=== PATIENT | male | born 1970 | race Caucasian/White ===

== ENCOUNTER 2022-12-08 10:36 | Inpatient (IN) | payer OTHER ==
[2022-12-08 11:07] VITALS: BMI 23.3
[2022-12-08] MEDS ORDERED: MAG HYDROX/AL HYDROX/SIMETH 30 ML UNIT-DOSE CUP PO PRN (12:43)
[2022-12-08] MEDS ORDERED: POLYETHYLENE GLYCOL (HEALTHYLAX) 3350 17 GM PACKET PO PRN (12:43)
[2022-12-08] MEDS ORDERED: BISMUTH SUBSALICYLATE 524 MG/30 ML PO PRN (12:43)
[2022-12-08] MEDS ORDERED: NALOXONE HCL 0.4 MG/ML VIAL IM PRN (12:43)
[2022-12-08] MEDS ORDERED: LOPERAMIDE HCL 2 MG CAPSULE PO PRN (12:43)
[2022-12-08] MEDS ORDERED: DICYCLOMINE HCL 10 MG CAPSULE PO PRN (12:43)
[2022-12-08] MEDS ORDERED: MAGNESIUM HYDROX 2400MG/30ML ORAL SUSPENSION 30 ML CUP PO PRN (12:43)
[2022-12-08] MEDS ORDERED: IBUPROFEN 600 MG TABLET (FP) PO PRN (12:43)
[2022-12-08] MEDS ORDERED: NALOXONE HCL (KLOXXADO) 8 MG SPRAY NS PRN (12:43)
[2022-12-08] MEDS ORDERED: ACETAMINOPHEN 325 MG TABLET (FP) PO PRN ×2 (12:43)
[2022-12-08] MEDS ORDERED: ONDANSETRON *ODT* 4 MG TABLET SL PRN (12:43)
[2022-12-08] MEDS ORDERED: IBUPROFEN 400 MG TABLET (FP) PO PRN (12:43)
[2022-12-08] MEDS ORDERED: BENZOCAINE/MENTHOL (CHLORASEPTIC ) LOZENGE MM PRN (12:43)
[2022-12-08] MEDS ORDERED: methaDONE HCL 10 MG TABLET (FOR DETOX USE ONLY) PO ONE (12:46)
[2022-12-08] MEDS: METHOCARBAMOL 500 MG TABLET PO PRN ×2 (13:24→22:48)
[2022-12-08] MEDS: diazePAM 5 MG TABLET PO PRN ×2 (13:27→19:49)
[2022-12-08] MEDS: diazePAM 5 MG TABLET PO SCH ×2 (16:47→22:47)
[2022-12-08] MEDS: MELATONIN 5 MG TABLETS PO SCH (22:46)
[2022-12-08] MEDS: THIAMINE HCL 100 MG TABLET (FP) PO SCH (22:46)
[2022-12-08] MEDS: NICOTINE POLACRILEX 2 MG GUM BUC PRN (22:56)
[2022-12-09] MEDS: diazePAM 5 MG TABLET PO PRN ×4 (02:50→19:26)
[2022-12-09] MEDS: diazePAM 5 MG TABLET PO SCH ×4 (05:51→22:30)
[2022-12-09] MEDS: METHOCARBAMOL 500 MG TABLET PO PRN ×2 (08:43→17:40)
[2022-12-09] MEDS: PRENATAL VITAMINS W/ FOLIC ACID TABLET (FP) PO SCH (10:35)
[2022-12-09 14:51] LABS: PH,URINE 5.5 (5.0-8.0); URINE APPEARANCE CLEAR; URINE BILIRUBIN NEGATIVE (NEGATIVE); URINE COLOR YELLOW; URINE GLUCOSE (UA) NEGATIVE (NEGATIVE); URINE KETONE NEGATIVE (NEGATIVE); URINE LEUK ESTERASE NEGATIVE (NEGATIVE); URINE NITRITE NEGATIVE (NEGATIVE); URINE PROTEIN NEGATIVE (NEGATIVE); URINE UROBILINOGEN 0.2 mg/dL (0.2-1.0)
[2022-12-09] MEDS: DOLUTEGRAVIR SODIUM 50 MG TABLET (NON-FORMULARY) PO SCH (14:52)
[2022-12-09] MEDS: RILPIVIRINE HCL 25 MG TABLET PO SCH (14:53)
[2022-12-09] MEDS: NICOTINE POLACRILEX 2 MG GUM BUC PRN (19:36)
[2022-12-09] MEDS: MELATONIN 5 MG TABLETS PO SCH (22:31)
[2022-12-09] MEDS: THIAMINE HCL 100 MG TABLET (FP) PO SCH (22:31)
[2022-12-09] MEDS: hydrOXYzine PAMOATE 25 MG CAPSULE (FP) PO PRN (22:32)
[2022-12-10] MEDS: diazePAM 5 MG TABLET PO SCH ×3 (05:40→22:07)
[2022-12-10] MEDS: diazePAM 5 MG TABLET PO PRN ×2 (08:35→17:02)
[2022-12-10] MEDS ORDERED: methaDONE HCL 10 MG TABLET (FOR DETOX USE ONLY) PO ONE (10:00)
[2022-12-10] MEDS: DOLUTEGRAVIR SODIUM 50 MG TABLET (NON-FORMULARY) PO SCH (10:06)
[2022-12-10] MEDS: PRENATAL VITAMINS W/ FOLIC ACID TABLET (FP) PO SCH (10:06)
[2022-12-10] MEDS: RILPIVIRINE HCL 25 MG TABLET PO SCH (10:06)
[2022-12-10] MEDS ORDERED: NICOTINE 10 MG CARTRIDGE (INHALER) IH PRN (13:48)
[2022-12-10] MEDS: THIAMINE HCL 100 MG TABLET (FP) PO SCH (22:07)
[2022-12-10] MEDS: MELATONIN 5 MG TABLETS PO SCH (22:07)
[2022-12-10] MEDS: METHOCARBAMOL 500 MG TABLET PO PRN (22:10)
[2022-12-10] MEDS: hydrOXYzine PAMOATE 25 MG CAPSULE (FP) PO PRN (22:10)
[2022-12-11] MEDS: diazePAM 5 MG TABLET PO PRN (03:03)
[2022-12-11] MEDS ORDERED: diazePAM 5 MG TABLET PO SCH (06:00)
[2022-12-11 06:27] VITALS: TEMP 97.5
[2022-12-11 09:11] VITALS: BP 136/95; PULSE 95; RESP 16
[2022-12-12] MEDS ORDERED: diazePAM 5 MG TABLET PO ONE (06:00)
[2022-12-12] MEDS ORDERED: methaDONE HCL 10 MG TABLET (FOR DETOX USE ONLY) PO ONE (10:00)
== END 2022-12-11 09:49 | disposition left against medical advice (07) | DRG 770 ==
LOC: YASAS 10:36 → Y3N 12:56
PROVIDERS: ADMIT Allergy & Immunology; ATTEND Surgery
PROC: HZ2ZZZZ Detoxification Services for Substance Abuse Treatment (ICD-10-PCS; principal; 2022-12-08)
DX: F11.23 Opioid dependence with withdrawal (principal); F13.20 Sedative, hypnotic or anxiolytic dependence, uncomplicated; F14.20 Cocaine dependence, uncomplicated; F10.10 Alcohol abuse, uncomplicated; F17.210 Nicotine dependence, cigarettes, uncomplicated; Z21 Asymptomatic human immunodeficiency virus [HIV] infection status; B18.2 Chronic viral hepatitis C; Z28.310 Unvaccinated for COVID-19; Z28.9 Immunization not carried out for unspecified reason
CPT/HCPCS: 81003; 87811; 93005; 93010; C9803-CS; U0003; U0005

== ENCOUNTER 2024-04-20 17:29 | Inpatient (IN) | payer OTHER ==
[2024-04-20 19:35] VITALS: BMI 23.3
[2024-04-20] MEDS ORDERED: LOPERAMIDE HCL 2 MG CAPSULE PO PRN (22:54)
[2024-04-20] MEDS ORDERED: BENZOCAINE/MENTHOL (CHLORASEPTIC ) LOZENGE MM PRN (22:54)
[2024-04-20] MEDS ORDERED: IBUPROFEN 600 MG TABLET (FP) PO PRN (22:54)
[2024-04-20] MEDS ORDERED: hydrOXYzine PAMOATE 25 MG CAPSULE (FP) PO PRN (22:54)
[2024-04-20] MEDS ORDERED: IBUPROFEN 400 MG TABLET (FP) PO PRN (22:54)
[2024-04-20] MEDS ORDERED: NALOXONE (NARCAN) HCL 4 MG/0.1 ML SPRAY NS PRN (22:54)
[2024-04-20] MEDS ORDERED: NALOXONE HCL 0.4 MG/ML VIAL IM PRN (22:54)
[2024-04-20] MEDS ORDERED: NICOTINE POLACRILEX 2 MG GUM BUC PRN (22:54)
[2024-04-20] MEDS ORDERED: BISMUTH SUBSALICYLATE 524 MG/30 ML PO PRN (22:54)
[2024-04-20] MEDS ORDERED: ACETAMINOPHEN 325 MG TABLET (FP) PO PRN (22:54)
[2024-04-20] MEDS ORDERED: BENZONATATE 200 MG CAPSULE PO PRN (22:54)
[2024-04-20] MEDS ORDERED: ONDANSETRON *ODT* 4 MG TABLET SL PRN (22:54)
[2024-04-20] MEDS ORDERED: MAG HYDROX/AL HYDROX/SIMETH 30 ML UNIT-DOSE CUP PO PRN (22:54)
[2024-04-20] MEDS ORDERED: POLYETHYLENE GLYCOL (HEALTHYLAX) 3350 17 GM PACKET PO PRN (22:54)
[2024-04-20] MEDS ORDERED: MAGNESIUM HYDROX 2400MG/30ML ORAL SUSPENSION 30 ML CUP PO PRN (22:54)
[2024-04-20] MEDS ORDERED: guaiFENesin 600 MG TABLET.ER (FP) PO PRN (22:54)
[2024-04-20] MEDS ORDERED: cloNIDine HCL 0.1 MG TABLET PO PRN (22:57)
[2024-04-20] MEDS: diazePAM 5 MG TABLET PO SCH (23:28)
[2024-04-20] MEDS: methaDONE HCL 10 MG TABLET (FOR DETOX USE ONLY) PO ONE (23:55)
[2024-04-21 08:51] LABS: HEMOGLOBIN 12.2 GM/dL (11.7-16.9); MCH 30.9 pg (25.7-33.7); MCHC 34.8 g/dl (32.0-35.9); MEAN CELL VOLUME 88.7 fl (80-96); MEAN PLT VOLUME 8.3 fl (7.5-11.1); PLATELET COUNT 232 10^3/uL (134-434); RBC 3.94 M/mm3 (4.00-5.60); RDW 12.8 % (11.9-15.9); WHITE BLOOD COUNT 6.6 K/mm3 (4.0-10.0)
[2024-04-21 09:04] LABS: CHLORIDE 106 mmol/L (98-107); POTASSIUM 4.1 mmol/L (3.5-5.1); SODIUM 140 mmol/L (136-145)
[2024-04-21 09:06] LABS: CALCIUM 8.5 mg/dL (8.5-10.1)
[2024-04-21 09:07] LABS: BLOOD UREA NITROGEN 17.1 mg/dL (7-18)
[2024-04-21 09:08] LABS: ANION GAP 4 mmol/L (4-13); CO2 30 mmol/L (21-32)
[2024-04-21 09:10] LABS: CREATININE 1.1 mg/dL (0.55-1.3); GLUCOSE,RANDOM 84 mg/dL (74-106); SGOT/AST 15 U/L (15-37); SGPT/ALT 9 U/L (13-61)
[2024-04-21 09:11] LABS: BILIRUBIN,TOTAL 0.2 mg/dL (0.2-1)
[2024-04-21 09:12] LABS: TOT PROT 5.7 g/dl (6.4-8.2)
[2024-04-21 09:13] LABS: ALK PHOS 60 U/L (45-117)
[2024-04-21] MEDS: METHOCARBAMOL 500 MG TABLET PO PRN (10:21)
[2024-04-21] MEDS: PRENATAL VITAMINS W/ FOLIC ACID TABLET (FP) PO SCH (10:21)
[2024-04-21] MEDS: NICOTINE 14 MG/24 HOURS TOPICAL PATCH TD SCH (10:22)
[2024-04-21] MEDS: THIAMINE 100 MG TABLET PO SCH (22:20)
[2024-04-21] MEDS: MELATONIN 5 MG TABLETS PO SCH (22:20)
[2024-04-22] MEDS: diazePAM 5 MG TABLET PO SCH (05:34)
[2024-04-22] MEDS: methaDONE HCL 10 MG TABLET (FOR DETOX USE ONLY) PO ONE (10:48)
[2024-04-23] MEDS: diazePAM 5 MG TABLET PO SCH (05:26)
[2024-04-23 05:50] VITALS: RESP 17
[2024-04-23 09:18] VITALS: BP 117/71; PULSE 81; TEMP 97
[2024-04-23] MEDS: diazePAM 5 MG TABLET PO PRN (09:56)
[2024-04-24] MEDS ORDERED: diazePAM 5 MG TABLET PO ONE (06:00)
[2024-04-24] MEDS ORDERED: methaDONE HCL 10 MG TABLET (FOR DETOX USE ONLY) PO ONE (10:00)
== END 2024-04-23 13:23 | disposition home or self-care (01) | DRG 773 ==
LOC: YASAS 17:29 → Y3N 23:23
PROVIDERS: ADMIT Allergy & Immunology; ATTEND Surgery
PROC: HZ2ZZZZ Detoxification Services for Substance Abuse Treatment (ICD-10-PCS; principal; 2024-04-20)
DX: F11.23 Opioid dependence with withdrawal (principal); F10.230 Alcohol dependence with withdrawal, uncomplicated; F13.20 Sedative, hypnotic or anxiolytic dependence, uncomplicated; F14.20 Cocaine dependence, uncomplicated; F17.210 Nicotine dependence, cigarettes, uncomplicated; Z21 Asymptomatic human immunodeficiency virus [HIV] infection status; B18.2 Chronic viral hepatitis C
CPT/HCPCS: 36415; 80053; 80305; 80307; 85027; 86780; 93005; 93010